=== PATIENT | female | born 1970 | race Caucasian/White ===

== ENCOUNTER 2020-08-18 16:12 | Emergency (ER) | payer SELFPAY ==
[~2020-08-18] VITALS: Ht 160 cm; Wt 43.1 kg
[~2020-08-18 16:12] MED LIST: BUSPIRONE HCL15 MG PO; GABAPENTIN600 MG PO; LORTAB; LORTAB 10-5001 EACH PO; LYRICA; LYRICA75 MG PO; ZYPREXA10 MG PO
[2020-08-18 17:48] LABS: CLARITY,URINE CLEAR (CLEAR); COLOR,URINE YELLOW (YELLOW); KETONES,URINE NEGATIVE (NEGATIVE); LEUKOCYTE ESTERASE ,URINE NEGATIVE (NEGATIVE); NITRITE,URINE NEGATIVE (NEGATIVE); PROTEIN,URINE DIPSTICK TRACE (NEGATIVE); URINE UROBILINOGEN 4 mg/dL (0.2 - 1)
[2020-08-18 17:49] LABS: AMPHETAMINES SCREEN,URINE NEGATIVE (NEGATIVE); BENZODIAZEPINES SCREEN,URINE NEGATIVE (NEGATIVE); PHENCYCLIDINE SCREEN,URINE NEGATIVE (NEGATIVE)
[2020-08-18 17:53] LABS: BACTERIA,URINE MODERATE /HPF; EPITHELIAL CELLS,URINE MODERATE /LPF; MUCUS,URINE MODERATE (RARE)
== END 2020-08-18 17:54 | disposition home or self-care (01) ==
LOC: ER 16:24
DX: R09.89 Other specified symptoms and signs involving the circulatory and respiratory systems (principal); M54.5 Low back pain; F14.10 Cocaine abuse, uncomplicated; B20 Human immunodeficiency virus [HIV] disease; G89.29 Other chronic pain; F17.210 Nicotine dependence, cigarettes, uncomplicated
CPT/HCPCS: 71045; 80307; 81001; 87086; 99283